=== PATIENT | female | born 1980 | race Caucasian/White ===

== ENCOUNTER 2016-10-18 18:20 | Emergency (ER) | payer BC ==
[2016-10-18] MEDS ORDERED: NO HOME MEDICATION XX (18:30)
[2016-10-18] MEDS ORDERED: ZOFRAN ODT4 MG PO (19:42)
== END 2016-10-18 19:50 ==
LOC: EDMED 18:20
DX: B34.9 Viral infection, unspecified (principal); R11.2 Nausea with vomiting, unspecified